=== PATIENT | male | born 1935 | race Native Hawaiian/Other Pacific Islander ===

== ENCOUNTER 2016-08-28 20:20 | Emergency (ER) | payer OTHER ==
[~2016-08-28] VITALS: Ht 167.6 cm; Wt 124.3 kg
[2016-08-28] MEDS ORDERED: CYCL10TA35 PO (20:41)
[2016-08-28] MEDS ORDERED: FURO40TA93 PO (20:42)
[2016-08-28] MEDS ORDERED: XANAX XR2 MG OR (20:43)
[2016-08-28] MEDS ORDERED: ALLO100T22 PO (20:44)
[2016-08-28 21:17] LABS: PLATELET COUNT 135 K/uL (142-355)
[2016-08-28 21:21] LABS: POTASSIUM 3.5 mmol/L (3.6-5.2); SODIUM 136 mmol/L (136-145)
[2016-08-28 22:45] VITALS: BP 114/68; TEMP 98.7
== END 2016-08-28 22:46 | disposition home or self-care (01) ==
LOC: ED 20:20
DX: G45.8 Other transient cerebral ischemic attacks and related syndromes (principal); I51.7 Cardiomegaly; I44.7 Left bundle-branch block, unspecified; I50.9 Heart failure, unspecified
CPT/HCPCS: 36600; 80053; 82550; 82805; 83880; 84484; 85027; 85379; 93005; 99284